=== PATIENT | female | born 1955 | race Caucasian/White ===

== ENCOUNTER 2021-02-03 10:31 | Outpatient (CLI) | payer MEDICARE ==
--- NOTE | 2021-02-03 14:44 | XRAY Report ---
PROCEDURE: Foot 3 View LT INDICATIONS: PAIN + EDEMA TECHNIQUE: 3 views of the foot were acquired. COMPARISON: None. FINDINGS: Bones: No fractures or dislocations. There is mild degeneration at the first metatarsophalangeal kimi nt with mild joint space narrowing subchondral sclerosis. No suspicious bony lesions. Soft tissues: There is mild soft tissue swelling medial to the first metatarsal head. No tibiotalar joint effusion. Achilles tendon appears normal. IMPRESSION: 1. No fracture or dislocation. 2. Mild degeneration at the first metatarsal phalangeal joint. Reviewed by: Michel Victor MD on 02/03/2021 2:42 PM PDT Approved by: Michel Victor MD on 02/03/2021 2:42 PM PDT Station ID: [id number]
== END 2021-02-03 10:32 | disposition home or self-care (01) ==
LOC: DI 10:31
PROVIDERS: ATTEND Podiatrist
DX: M19.072 Primary osteoarthritis, left ankle and foot (principal)